=== PATIENT | male | born 1965 | race Asian ===

== ENCOUNTER 2018-05-28 06:16 | Emergency (ER) | payer OTHER ==
[~2018-05-28] VITALS: Ht 170.2 cm; Wt 71.7 kg
[2018-05-28 06:23] VITALS: BP_SYST 169
[2018-05-28] MEDS ORDERED: BACITRACIN 1 GM OINT TP ONE (08:21)
[2018-05-28 08:29] VITALS: BP_SYST 152
== END 2018-05-28 08:29 | disposition home or self-care (01) ==
LOC: SED 06:16
DX: S61.432A Puncture wound without foreign body of left hand, initial encounter (principal); X58.XXXA Exposure to other specified factors, initial encounter; Y93.89 Activity, other specified; Y92.89 Other specified places as the place of occurrence of the external cause; Y99.8 Other external cause status
CPT/HCPCS: 99283